=== PATIENT | male | born 1955 | race Two or more races ===

== ENCOUNTER 2022-11-09 08:12 | Day surgery (SDC) | payer OTHER ==
[~2022-11-09] VITALS: Ht 175.3 cm; Wt 84.8 kg
[~2022-11-09 08:12] MED LIST: ALBUTEROL IH; ATORVASTATIN CA40 MG PO; IRON PO; LEVOTHYROXINE25 MCG PO; [UNRECOGNIZED DRUG - REMARK] PO
[2022-11-09] MEDS ORDERED: ULTRACET PO (12:37)
[2022-11-09] MEDS ORDERED: COLACE100 MG PO (12:37)
== END 2022-11-09 16:35 | disposition home or self-care (01) ==
LOC: CIR.AMB 08:12
PROVIDERS: ATTEND Surgery
DX: D12.8 Benign neoplasm of rectum (principal); K62.89 Other specified diseases of anus and rectum; Z20.822 Contact with and (suspected) exposure to COVID-19; Z91.041 Radiographic dye allergy status; F17.210 Nicotine dependence, cigarettes, uncomplicated; F12.90 Cannabis use, unspecified, uncomplicated; E03.9 Hypothyroidism, unspecified; K59.00 Constipation, unspecified

== ENCOUNTER 2023-06-21 05:17 | Day surgery (SDC) | payer OTHER ==
[~2023-06-21] VITALS: Ht 175.3 cm; Wt 83.5 kg
[~2023-06-21 05:17] MED LIST changes: +CLARITIN10 MG PO; +COLACE100 MG PO; +PROAIR RESPICL90 MCG IH; +ULTRACET PO
[2023-06-21] MEDS ORDERED: TRAM1TAB98 PO (10:15)
== END 2023-06-21 13:45 | disposition home or self-care (01) ==
LOC: CIR.AMB 05:17
PROVIDERS: ATTEND Surgery
DX: K62.82 Dysplasia of anus (principal); D37.8 Neoplasm of uncertain behavior of other specified digestive organs; D12.8 Benign neoplasm of rectum; K62.5 Hemorrhage of anus and rectum; K57.30 Diverticulosis of large intestine without perforation or abscess without bleeding; I10 Essential (primary) hypertension; Z20.822 Contact with and (suspected) exposure to COVID-19